=== PATIENT | female | born 1960 | race Caucasian/White ===

== ENCOUNTER 2020-09-14 13:08 | Inpatient (IN) | payer BC ==
[2020-09-14 18:01] VITALS: BMI 26.7
[2020-09-14] MEDS ORDERED: Ondansetron ODT 4 MG TAB PO PRN (18:22)
[2020-09-14] MEDS ORDERED: Ondansetron PF 4 MG/2 ML Vial IVP PRN (18:22)
[2020-09-14] MEDS ORDERED: hydrALAZINE 20 MG/ML VIAL SLOW IVP PRN (18:22)
[2020-09-14] MEDS ORDERED: Dextrose 50% Abboject 50 ML SYRINGE SLOW IVP PRN (18:22)
[2020-09-14] MEDS ORDERED: Cyclobenzaprine 10 MG TAB PO PRN (18:22)
[2020-09-14] MEDS ORDERED: Dextrose 5% in Water 1,000 ML IV PRN (18:22)
[2020-09-14] MEDS ORDERED: Insulin Regular 300 UNITS/3 ML VIAL SC PRN (19:13)
--- NOTE | 2020-09-14 19:58 | RAD ---
Exam:3 views right shoulder HISTORY: Pain. Fall. COMPARISON: None FINDINGS: Comminuted right humeral fracture. IMPRESSION: Comminuted right humeral head fracture.
--- NOTE | 2020-09-14 20:07 | HP ---
REQUESTING PHYSICIAN: Dr. Daniel Lowry from [facility]. ATTENDING SURGEON: Dr. Maher. CONSULTATIONS: Neurosurgery, Dr. Azul; Orthopedics, Dr. Wright. HISTORY OF PRESENT ILLNESS: The patient is a 60-year-old woman, who was brought to our facility as a transfer from [facility] status post a fall yesterday. The patient reports that she tripped on a rug and fell, hit her head and her right shoulder. She felt okay during the day, but her headache increased and this morning, she went to [facility] Department, where she underwent evaluation and examination and was noted to have a right proximal humerus fracture and an intraparenchymal hematoma, at which time, she was transferred to our facility for neurosurgical evaluation and orthopedic evaluation. The patient reports that she had some dizziness since the fall, but otherwise, her headache was being controlled for the most part with Tylenol. She denied nausea or vomiting. She is COVID negative. ALLERGIES: NONE. CURRENT MEDICATIONS: 1. Amlodipine 5 mg once daily. 2. Aspirin 81 mg once daily. 3. Atorvastatin 40 mg once daily. 4. Brilinta 90 mg one tablet twice a day. 5. Carvedilol 25 mg twice daily. 6. Humulin. 7. Toujeo. PRIMARY CARE PROVIDER: Fabiola Jarrell MD PAST MEDICAL HISTORY: Coronary stent, hypertension, hyperlipidemia, myocardial infarction, and diabetes. PAST SURGICAL HISTORY: Cardiac stent placement. SOCIAL HISTORY: The patient lives at home with family. She smoked greater than 10 years ago. Rare alcohol. No drug use. REVIEW OF SYSTEMS: 10-point review of systems is negative as otherwise stated. PHYSICAL EXAMINATION: VITAL SIGNS: Temperature is 98, heart rate 86, blood pressure 146/82, respirations 14, and oxygen saturation is 98% on room air. GENERAL: The patient is resting comfortably in a bed in the [facility]. She is awake, alert, conversant. Her [place] Coma Scale is 15. HEENT: Head is normocephalic and atraumatic. Eyes, right eye has periorbital ecchymosis. Her eyes are PERRLA bilaterally. Extraocular motion is intact. Nose has scant dried blood in the right naris, otherwise unremarkable. Ears are atraumatic without discharge. Oropharynx is clear. NECK: Nontender. Trachea is midline with no JVD. CHEST: Clear to auscultation with good inspiratory and expiratory effort. HEART: Regular rate and rhythm. ABDOMEN: Soft, flat, nontender with active bowel sounds. PELVIS: Stable. EXTREMITIES: Neurovascularly intact x4. Right upper extremity is immobilized in a sling. She has tenderness to palpation to her shoulder consistent with her right proximal humerus fracture. Again, her distal sensation is intact. Pulses are intact. Her motor is intact. LABORATORY FINDINGS: COVID is negative. WBCs 13.9, hemoglobin 10.1, hematocrit 30.9, platelets 282. Sodium 130, potassium 5.0, CO2 of 26, chloride 98, glucose 470, BUN 30, creatinine 1.5. LFTs are unremarkable. INR is 0.80. RADIOGRAPHIC FINDINGS: CT of the head without contrast shows a 1.8 cm intraparenchymal hematoma noted in the anterior right subcortical frontal lobe. Views of the right humerus show an essentially nondisplaced, mildly impacted fracture of the right humeral neck with extension into the greater tuberosity and humeral head. ASSESSMENT: 1. Status post fall with delayed presentation greater than 24 hours. 2. Intraparenchymal hematoma. 3. Right proximal humerus fracture. 4. Hyperglycemia secondary to diabetes. 5. Vertigo secondary to closed head injury. PLAN: Plan will be to keep the patient here in the IMCU. She will have serial neurologic exams, repeat head CT in the morning, scopolamine patch for her vertigo, sliding scale insulin, and evaluation by Orthopedics and Neurosurgery. The evaluation, examination, laboratory, and radiographic findings were discussed with Dr. Maher prior to this dictation. Job ID: [id number]
[2020-09-14] MEDS: Sodium Chloride 0.9% 1,000 ML IV SCH (20:30)
[2020-09-14] MEDS: Acetaminophen 325 MG TAB PO SCH (20:30)
[2020-09-14] MEDS: Atorvastatin Calcium 40 MG TAB PO SCH (20:31)
[2020-09-14] MEDS: Scopolamine 1.5 mg/72 hour Patch TD SCH (20:31)
[2020-09-14] MEDS: Insulin Regular 300 UNITS/3 ML VIAL SC PRN (20:32)
[2020-09-14] MEDS: Famotidine 20 MG TAB PO SCH (20:32)
[2020-09-14] MEDS: Carvedilol 25 MG TAB PO SCH (20:32)
--- NOTE | 2020-09-14 23:35 | CON ---
DATE OF CONSULTATION: 09/14/2020 HISTORY OF PRESENT ILLNESS: Ms. Street is a 60-year-old female, who fell yesterday, tripping on a throw rug, landing on her right eye and right shoulder. She states that this morning she still had a headache, so she went to [facility] Emergency Room, where she underwent evaluation and found to have a right proximal humerus fracture and intraparenchymal hemorrhage measuring 1.8 cm on the right side. She was a direct admit to the [facility]. She tells me she is taking Brilinta 90 mg twice a day and aspirin 81 mg once a day. Her last dose of Brilinta 90 mg and aspirin 81 mg was this morning. She denies any loss of consciousness, blurred vision, or seizures. REVIEW OF SYSTEMS: CONSTITUTIONAL: Denies fever or chills. ENT: Denies change in vision or hearing. CARDIAC: Denies chest pain, shortness of breath, or diaphoresis. PULMONARY: Denies shortness of breath, cough, or hemoptysis. GI: Denies abdominal pain, nausea, vomiting, diarrhea, or change in stool formation or consistency. : Denies trouble with urination, frequency of urination, or bloody urine. SKIN: Reports bruising of the right eye and of the right arm and shoulder. Denies skin rash or skin masses. MUSCULOSKELETAL: As per history of present illness. NEUROLOGICAL: As per history of present illness. PSYCHOLOGICAL: As per history of present illness. MEDICAL HISTORY: Coronary stents, hypertension, hyperlipidemia, myocardial infarction, and diabetes. PAST SURGICAL HISTORY: Cardiac stent. HOSPITALIZATIONS: As above surgeries. SOCIAL HISTORY: Former smoker. Occasionally drinks alcohol. Denies illicit drug use. The patient lives at home with family. MEDICATIONS: 1. Toujeo. 2. Humulin. 3. Carvedilol 25 mg. 4. Brilinta 90 mg twice a day. 5. Atorvastatin 40 mg. 6. Aspirin 81 mg. 7. Amlodipine 5 mg. ALLERGIES: NO KNOWN DRUG ALLERGIES. PHYSICAL EXAMINATION: VITAL SIGNS: BP 132/78, heart rate 78, respirations 16, and temperature 98.6. GENERAL: The patient is in no acute distress. She is awake, alert, and oriented x3. HEENT: Head is normocephalic and atraumatic. Right eye has periorbital ecchymosis. Pupils are equal. Extraocular movements are intact. NECK: Soft, supple. No masses are noted. Range of motion is intact and nonpainful. Cranial nerves are grossly intact. NEUROLOGICAL: Memory, attention, fund of knowledge normal. Free active range of motion in all extremities. No focal motor weakness. No reflex asymmetry. GCS 15. LABORATORY DATA: WBCs 13.9, hemoglobin 10.1, hematocrit 30.9, platelets 282. Sodium is 130. INR is 0.80. IMAGING: CT of the head shows a 1.8 cm intraparenchymal hematoma in the right subcortical frontal lobe. There is also a right humerus nondisplaced fracture of the right humeral neck with extension into the greater tuberosity and humeral head. ASSESSMENT: 1. Fall. 2. Intraparenchymal hematoma. 3. Right proximal humerus fracture. PLAN: Neuro checks every 2 hours. Head of bed, 30 degrees. Stop aspirin and Brilinta for 2 weeks. Transfuse 1 unit of platelets and re-scan head in the morning. No intracranial surgery at this time. Job ID: [id number] [facility]
[2020-09-15] MEDS: Acetaminophen 325 MG TAB PO SCH ×4 (00:35→20:53)
[2020-09-15] MEDS: traMADol HCl 50 MG TAB PO SCH ×5 (00:35→23:44)
[2020-09-15] MEDS: Sodium Chloride 0.9% 1,000 ML IV SCH (00:39)
[2020-09-15 03:51] LABS: #Basophils 0.1 thou/uL (0.0-0.2); #Eosinphils 0.1 thou/uL (0.0-0.7); #Lymphocytes 2.5 thou/uL (1.20-3.40); #Monocytes 1.2 thou/uL (0.11-0.59); #Neutrophils 7.4 thou/uL (1.40-6.50); %Basophils 0.5 % (0.0-1.0); %Lymphocytes 22.4 % (21.0-51.0); %Monocytes 10.5 % (0.0-10.0); %Neutrophils 65.6 % (42.0-75.0); Mean Corpuscular HGB CONC 34.3 g/dL (32.0-36.0); Mean Corpuscular Hemoglobin 31.9 pg (27.0-31.0); Mean Corpuscular Volume 93.2 fL (78.0-98.0); Mean Platelet Volume 7.6 fL (7.4-10.4); Platelet Count 315 thou/uL (130-400); RBC Distribution Width 13.7 % (11.5-14.5); White Blood Cell (WBC) Count 11.2 thou/uL (4.8-10.8)
[2020-09-15 04:13] LABS: Anion Gap 13 mmol/L (10-20); BUN (Urea Nitrogen) 26 mg/dL (9.8-20.1); Calc. Creatinine Clearance 53 mL/min (70-130); Calcium 8.3 mg/dL (7.8-10.44); Carbon Dioxide 24 mmol/L (23-31); Chloride 104 mmol/L (98-107); Glucose 154 mg/dL (80-115); Potassium 3.7 mmol/L (3.5-5.1); Sodium 137 mmol/L (136-145)
--- NOTE | 2020-09-15 07:19 | PRG ---
DATE OF SERVICE: 09/15/2020 I personally interviewed and examined the patient, agree with documentation of Vu Mendoza PA-C, dated 09/14/2020. Briefly, Ruba Street is a 60-year-old woman who [place] she got up to move across the living room. They have a throw rug on the floor there and before she could reach the window, where she was going to make adjustments to the blinds, her foot got caught up and she fell forward. She had a head injury, for which she sought medical attention with us and CT examination of brain showed a small parenchymal contusion, subcortical in the right frontal lobe. She is admitted for observation. She also had a humerus fracture. Overnight, she has been resting comfortably. The arm is sore. Among the electronically recorded vital signs, I see a maximum temperature 99.1 degrees Fahrenheit, recorded blood pressures are in the 120s. Ms. Street is awake. She is alert. Her eyes are open. She is cognitively intact. She denies any anxiety about safety at home. Cranial nerves are functioning well. There is no drift. There is no neglect. I do not find any lateralizing motor or sensory deficits. CT examination of brain this morning shows stability of the small parenchymal bleed. This is tiny and does not require surgical intervention. She only is on Brilinta and aspirin. We are going to have to hold the Brilinta for 2 weeks and the aspirin preferably for 1 week unless there is a strong indication to start it sooner. We will schedule a followup CT examination of brain in a few weeks and I will call her with those results from clinic. She can be discharged home once she proves to physical therapy and nursing that she is safe for all of her activities of daily living. Job ID: [id number] [facility]
--- NOTE | 2020-09-15 08:14 | CT ---
PRELIMINARY REPORT/[facility]/EMERGENCY AFTER HOURS PROCEDURE: Receipt of this report by the clinical staff was confirmed with Elizabeth Trujillo RN by Giovana Horton Sep 15, 2020 05:30:00 [employer]IVER. Addendum electronically signed by Giovana Horton on September 15, 2020 5:31:05 AM PARTY BUS DRIVER EXAM: CT Head Without Intravenous Contrast. CLINICAL HISTORY: FOLLOW UP [facility]// INITIAL SCAN PREFORMED OFFSITE FROM ANOTHER FACILITY TECHNIQUE: Axial computed tomography images of the head/brain without intravenous contrast. COMPARISON: None provided. FINDINGS: BRAIN: There is a small hemorrhagic contusion in the right frontal lobe measuring about 15 mm associated wit h right periorbital trauma. There is generalized atrophy and abundant white matter changes noted, mu ch more than typically seen for a patient this age. Periorbital soft tissue swelling on the right wi thout evidence of fracture. Chronic opacification of the sphenoid sinuses bilaterally. Mastoids are clear. IMPRESSION: Small hemorrhagic contusion in the right frontal lobe. Large periorbital soft tissue hematoma on the right. ELECTRONICALLY SIGNED BY: Vu Esquivel MD Sep 15, 2020 5:24:01 AM PARTY BUS DRIVER This report is intended for review by the ordering physician only, in accordance of law. If you recei ve this report in error, please call [facility] at [phone]. FINAL REPORT EMERGENT AFTER HOURS CT OF THE BRAIN WITHOUT CONTRAST: FINDINGS/IMPRESSION: I agree with the findings and impression given in the preliminary report per [facility] physici an. There is a right frontal lobe contusion. There may be a tiny amount of subdural blood along the anterior aspect of the falx near this other parenchymal contusion. POS: MALCOM
[2020-09-15] MEDS: Amlodipine 5 MG TAB PO SCH (09:43)
[2020-09-15] MEDS: Famotidine 20 MG TAB PO SCH ×2 (09:43→20:53)
[2020-09-15] MEDS: Carvedilol 25 MG TAB PO SCH ×2 (09:44→20:53)
--- NOTE | 2020-09-15 09:44 | CON ---
DATE OF CONSULTATION: CONSULTING PHYSICIAN: Ruy Maher DO CHIEF COMPLAINT: Right shoulder pain. HISTORY OF PRESENT ILLNESS: Ms. Street is a 60-year-old female, who fell yesterday. She tripped on a rug. She landed on her right shoulder and also hit her head. She had headaches and shoulder pain and went to the [facility] Emergency Department. She was transferred over for further care. She has been admitted to the intermediate care unit for observation. She is resting comfortably. She feels eager to get up and get out of the hospital she reports. Her shoulder is in a sling. I was consulted for a proximal humerus fracture. ALLERGIES: NONE. MEDICATIONS: see chart PAST MEDICAL HISTORY: Coronary artery disease, hypertension, hyperlipidemia, history of myocardial infarction, and diabetes. PAST SURGICAL HISTORY: Cardiac stent placement. REVIEW OF SYSTEMS: Positive for mild right shoulder pain. Otherwise, negative 10-point review of systems. SOCIAL HISTORY: The patient lives locally. She denies alcohol or drug use. FAMILY MEDICAL HISTORY: Noncontributory. IMAGING: Right shoulder x-rays demonstrate a proximal humeral fracture with very minimal displacement. This is a three-part fracture. There may be abnormality of the anterior glenoid. This is difficult to visualize. PHYSICAL EXAMINATION: VITAL SIGNS: Blood pressure 140/53, heart rate is 82, respiratory rate of 17, oxygen saturation 94%. GENERAL: She is sitting upright, in no apparent distress. HEENT: The patient has ecchymosis about her eyes, otherwise intact. RESPIRATORY: Breathing comfortably. ABDOMEN: Soft, nontender, nondistended. CARDIOVASCULAR: Pulses palpable and regular peripherally. MUSCULOSKELETAL: The patient's right arm is neurovascularly intact in the fingers and hand. She is able to move her fingers, wrist, and elbow well. She does have ecchymosis of the upper arm and down to the elbow. There is swelling about her shoulder. She has pain with shoulder motion. IMPRESSION: Right proximal humerus fracture in a patient who fell yesterday. PLAN: Regarding the shoulder, the patient can be treated nonoperatively. We will continue her sling for comfort. She can mobilize out of bed. She can work on gentle motion of the elbow, wrist, and hand. I would like to see her in the clinic in two weeks to check x-ray to confirm that she is maintaining appropriate alignment. Job ID: [id number] [facility]
[2020-09-15] MEDS: Insulin Regular 300 UNITS/3 ML VIAL SC PRN (11:51)
--- NOTE | 2020-09-15 20:42 | PRG ---
DATE OF SERVICE: 09/15/2020 SUBJECTIVE: The patient was seen this morning during rounds. She was sitting up in bed with no signs of acute distress. She reported her pain is well controlled. GCS is 15. Hemodynamically stable. Tolerated her clear liquid diet. OBJECTIVE: VITAL SIGNS: Temperature 98.7, pulse 75, respirations 15, oxygen saturation 96% on room air, and blood pressure 118/48. GENERAL: Well-appearing elderly female, sitting up in bed with no signs of acute distress. PULMONARY: Equal chest rise and fall. Clear breath sounds bilaterally. No signs of acute respiratory distress. CARDIAC: Regular rate and rhythm. GI: Abdomen is soft, nontender, nondistended. EXTREMITIES: 2+ pulses in all extremities. Gross motor and sensation intact. Right upper extremity is with sling. NEUROLOGIC: GCS is 15. No focal neurological deficits. HEENT: Pupils equal, round, reactive to light bilaterally. Face, the patient has bilateral periorbital bruising. LABORATORY FINDINGS: There are no new laboratory findings to discuss. DIAGNOSTIC FINDINGS: CT scan of the brain completed this morning demonstrates small hemorrhagic contusions in the right frontal lobe, large periorbital soft tissue hematoma on the right. ASSESSMENT: 1. Status post mechanical fall from standing, on aspirin and Brilinta. 2. Intraparenchymal and subdural hemorrhages in the right frontal area. 3. Right eye contusion. 4. Right proximal humerus fracture. 5. History of coronary stents, hypertension, myocardial infarction, and hyperlipidemia. PLAN: Advance to diabetic diet. Discontinue IV fluids. Restart home medications as clinically indicated. Start physical, occupational, and speech language pathology therapies. I did speak with the nurse practitioner of the patient's independent insurance adjuster, Dr. Ulisses Acuna. I updated them on the patient's TBI and the recommendations from Neurosurgery is to discontinue aspirin for one week and Brilinta for two weeks, they are in agreement and will re-evaluate the patient. After evaluation by PT, OT, and Speech, we will consider placement versus discharge home. The patient is updated on the plan and is in agreement. This patient was seen and evaluated by Dr. Maher and myself this morning during rounds. Job ID: [id number]
[2020-09-15] MEDS: Atorvastatin Calcium 40 MG TAB PO SCH (20:53)
[2020-09-16] MEDS: Insulin Regular 300 UNITS/3 ML VIAL SC PRN ×3 (00:39→17:31)
[2020-09-16] MEDS: Acetaminophen 325 MG TAB PO SCH ×4 (03:21→21:06)
[2020-09-16 05:52] LABS: #Basophils 0.1 thou/uL (0.0-0.2); #Eosinphils 0.2 thou/uL (0.0-0.7); #Lymphocytes 2.8 thou/uL (1.20-3.40); #Monocytes 1.4 thou/uL (0.11-0.59); #Neutrophils 9.5 thou/uL (1.40-6.50); %Basophils 0.5 % (0.0-1.0); %Eosinophils 1.3 % (0.0-10.0); %Lymphocytes 19.9 % (21.0-51.0); %Neutrophils 68.2 % (42.0-75.0); Hemoglobin 8.9 g/dL (12.0-16.0); Mean Corpuscular HGB CONC 33.9 g/dL (32.0-36.0); Mean Corpuscular Hemoglobin 31.7 pg (27.0-31.0); Mean Corpuscular Volume 93.6 fL (78.0-98.0); Mean Platelet Volume 7.6 fL (7.4-10.4); Platelet Count 310 thou/uL (130-400); RBC Distribution Width 13.6 % (11.5-14.5); Red Blood Cell (RBC) Count 2.81 mill/uL (4.20-5.40); White Blood Cell (WBC) Count 13.9 thou/uL (4.8-10.8)
[2020-09-16] MEDS: traMADol HCl 50 MG TAB PO SCH ×3 (06:28→17:30)
[2020-09-16 06:40] LABS: Anion Gap 15 mmol/L (10-20); BUN (Urea Nitrogen) 22 mg/dL (9.8-20.1); Calc. Creatinine Clearance 58 mL/min (70-130); Calcium 8.4 mg/dL (7.8-10.44); Carbon Dioxide 22 mmol/L (23-31); Chloride 103 mmol/L (98-107); Glucose 210 mg/dL (80-115); Magnesium 2.1 mg/dL (1.6-2.6); Phosphorus 3.3 mg/dL (2.3-4.7); Potassium 3.8 mmol/L (3.5-5.1); Sodium 136 mmol/L (136-145)
--- NOTE | 2020-09-16 07:58 | PRG ---
DATE OF SERVICE: 09/16/2020 I saw Ms. Street in her hospital room this morning. She is moved out of the intermediate care unit to general floor care. She feels well and asks to go home. Once again, she feels safe at home, she does not feel there is any threatening or adversely affecting her health that would be present in her home. Among the electronically recorded vital signs, the maximum temperature I see is 98.2 degrees Fahrenheit. Blood pressures have been 140s to 150s. Ms. Street is wide awake. She is answering questions. She is moving all extremities well. We will make followup arrangements for Ms. Street in our Neurosurgery Clinic for a CT scan in about 3 weeks to ensure resolution of the intraparenchymal contusion suffered during her fall. The Social Work and Physical Therapy feel she is safe at home. She can be discharged. We will make our Neurosurgery followup arrangements. Job ID: [id number]
[2020-09-16] MEDS: Famotidine 20 MG TAB PO SCH ×2 (08:21→21:03)
[2020-09-16] MEDS: Carvedilol 25 MG TAB PO SCH ×2 (08:21→21:03)
[2020-09-16] MEDS: Amlodipine 5 MG TAB PO SCH (08:21)
[2020-09-16] MEDS: Senokot S 8.6-50 MG TAB PO SCH ×2 (08:23→21:03)
[2020-09-16] MEDS: Polyethylene Glycol 3350 17 GM Packet PO SCH (08:23)
--- NOTE | 2020-09-16 16:00 | PRG ---
DATE OF SERVICE: 09/16/2020 SUBJECTIVE: The patient is resting comfortably in bed this morning. Says she is doing well. States that at nighttime, she gets kind of confused, wakes up in the morning, and feels back to normal. She states her pain is well controlled. She is able to get up and move around without difficulty, tolerating diet. OBJECTIVE: VITAL SIGNS: Temperature 98.1, heart rate 86, respiratory rate 16, O2 saturation 98% on room air, blood pressure 138/60. GENERAL: Well-appearing elderly female, sitting up in bed with no signs of acute distress. GCS of 15. PULMONARY: No signs of acute respiratory distress. CARDIAC: Regular rate and rhythm. GI: Abdomen is soft, nontender, nondistended. EXTREMITIES: Gross motor and sensation are intact. Right upper extremity is out of the sling today on rounds. However, she is encouraged to wear it. NEUROLOGIC: No focal neurologic deficits. HEENT: Extraocular movements intact. The patient has bilateral periorbital bruising. LABORATORY FINDINGS: White blood cell count 13.9. All of her electrolytes are within normal limits. There are no new radiographic images to review. ASSESSMENT: 1. Status post mechanical fall from standing, on aspirin and Brilinta. 2. Intraparenchymal and subdural hemorrhages in the right frontal area. 3. Right eye contusion. 4. Right proximal humerus fracture. 5. History of coronary stents, hypertension, myocardial infarction, hyperlipidemia. PLAN: Hold aspirin for 1 week and Brilinta for 2 weeks. Continue working with PT, OT, and Speech. Neurosurgery recommendations include a CT scan in about 3 weeks to ensure resolution of the intraparenchymal contusion suffered during her fall. Ortho recommends a 2-week followup in the clinic. We are working with Case Management to arrange inpatient short-term rehab for discharge and patient is agreeable. Patient seen this morning on rounds with Dr. Maher. He agrees with plan and above documentation. Job ID: [id number] [facility]
[2020-09-16] MEDS ORDERED: Ascorbic Acid 500 mg Chewable Tablet PO SCH (19:45)
[2020-09-16] MEDS: Atorvastatin Calcium 40 MG TAB PO SCH (21:03)
[2020-09-17] MEDS: Acetaminophen 325 MG TAB PO SCH ×4 (02:04→20:53)
[2020-09-17] MEDS: traMADol HCl 50 MG TAB PO SCH ×4 (06:38→17:47)
[2020-09-17] MEDS: Insulin Regular 300 UNITS/3 ML VIAL SC PRN ×3 (06:42→17:47)
[2020-09-17] MEDS: Amlodipine 5 MG TAB PO SCH (09:06)
[2020-09-17] MEDS: Carvedilol 25 MG TAB PO SCH ×2 (09:06→20:53)
[2020-09-17] MEDS: Ascorbic Acid 500 mg Chewable Tablet PO SCH (09:07)
[2020-09-17] MEDS: Polyethylene Glycol 3350 17 GM Packet PO SCH (09:07)
[2020-09-17] MEDS: Famotidine 20 MG TAB PO SCH ×2 (09:07→20:54)
[2020-09-17] MEDS: Senokot S 8.6-50 MG TAB PO SCH ×2 (09:07→20:54)
[2020-09-17] MEDS: Scopolamine 1.5 mg/72 hour Patch TD SCH (20:54)
[2020-09-17] MEDS: Atorvastatin Calcium 40 MG TAB PO SCH (20:54)
--- NOTE | 2020-09-17 22:23 | PRG ---
DATE OF SERVICE: 09/17/2020 SUBJECTIVE: The patient is here after a fall which resulted in a right proximal humerus fracture and an intraparenchymal hematoma. Patient is resting comfortably in bed this morning. She says she is doing well. She states her pain is well controlled. She is able to get up and move around without difficulty and is tolerating her diet. Overnight, the nurse told me she seemed delirious and also was feeling like she was developing a cold. This morning, she says she feels better but she does say that she feels a little bit congested. Patient says she wants to go home. OBJECTIVE: VITAL SIGNS: Temperature 98.1, pulse 98, respiratory rate 18, 97% on room air, blood pressure 137/65. GENERAL: Well-appearing, elderly female, sitting up in bed with no signs of acute distress. GCS of 15. PULMONARY: No signs of acute respiratory distress. CARDIAC: Regular rate and rhythm. GASTROINTESTINAL: Abdomen is soft, nontender, nondistended. EXTREMITIES: Gross motor and sensation are intact. Right upper extremity is not in sling on rounds today. NEUROLOGIC: No focal neurologic deficits. HEENT: Extraocular movements intact. The patient has bilateral periorbital bruising. LABORATORY FINDINGS: The patient has no new laboratory data to review today. RADIOGRAPHIC IMAGING: Patient has no new radiographic images to review today. ASSESSMENT: 1. Status post mechanical fall from standing, on aspirin and Brilinta at home. 2. Intraparenchymal and subdural hemorrhage in the right frontal area, stable. 3. Right eye contusion. 4. Right proximal humerus fracture. 5. History of coronary artery stent, hypertension, myocardial infarction, hyperlipidemia. PLAN: Continue working with PT/OT and Speech. Continue to follow up with Neurosurgery recommendations. In the meantime, they recommend holding aspirin for 1 week and Brilinta for 2 weeks. They want a CT scan in about 3 weeks to ensure resolution of the intraparenchymal contusion suffered during her fall. Also recommend a 2-week followup in the clinic. We are still working with Case Management to arrange inpatient short-term rehab for discharge for [facility]. Overall from our point of view, patient is stable for discharge. Patient was seen this morning on rounds with Dr. Maher. He agrees with the plan and documentation as stated above. Job ID: [id number] [facility]
[2020-09-18] MEDS: Acetaminophen 325 MG TAB PO SCH ×2 (02:00→09:35)
[2020-09-18] MEDS: traMADol HCl 50 MG TAB PO SCH ×3 (04:50→12:28)
[2020-09-18] MEDS: Insulin Regular 300 UNITS/3 ML VIAL SC PRN (05:40)
[2020-09-18] MEDS: Polyethylene Glycol 3350 17 GM Packet PO SCH (09:31)
[2020-09-18] MEDS: Carvedilol 25 MG TAB PO SCH (09:32)
[2020-09-18] MEDS: Ascorbic Acid 500 mg Chewable Tablet PO SCH (09:32)
[2020-09-18] MEDS: Senokot S 8.6-50 MG TAB PO SCH (09:32)
[2020-09-18] MEDS: Amlodipine 5 MG TAB PO SCH (09:32)
[2020-09-18] MEDS: Famotidine 20 MG TAB PO SCH (09:32)
[2020-09-18 11:41] VITALS: BP 134/64; TEMP 98.4
--- NOTE | 2020-09-21 13:12 | DIS ---
DATE OF ADMISSION: 09/14/2020 DATE OF DISCHARGE: 09/18/2020 ADMISSION DIAGNOSES: 1. Mechanical fall from standing, on aspirin and Brilinta. 2. Intraparenchymal and subdural hemorrhages in the right frontal area. 3. Right eye contusion. 4. Right proximal humerus fracture. DISCHARGE DIAGNOSES: 1. Mechanical fall from standing, on aspirin and Brilinta. 2. Intraparenchymal and subdural hemorrhages in the right frontal area. 3. Right eye contusion. 4. Right proximal humerus fracture. CONSULTING PHYSICIAN: Tessa Azul MD of Neurosurgery and Deep Wright MD of Orthopedic Surgery. PROCEDURES: None. HOSPITAL COURSE: The patient is a 60-year-old female, who presented to the emergency department as a transfer from [facility] after she had a mechanical fall from standing where she was found to have intraparenchymal hemorrhages as well as a right eye contusion and a right proximal humerus fracture. The patient's GCS was 14 to 15 upon arrival and remained so throughout her hospitalization. The patient was evaluated by Neurosurgery. They are recommending holding Brilinta for 2 weeks and aspirin for 1 week. Orthopedic Surgery recommended nonoperative management with right upper extremity in a sling. She was admitted to our service and ultimately was discharged to acute rehab facility for physical therapy, occupational therapy, and speech language pathology. At the time of discharge, the patient's pain was well controlled. She was tolerating a diabetic diet. She was working with Physical and Occupational Therapy and she was voiding without difficulties. DISCHARGE DISPOSITION: Acute rehab facility, [facility]. DISCHARGE CONDITION: Satisfactory. PHYSICAL EXAMINATION: VITAL SIGNS: Temperature 98.8, pulse 98, respirations 18, oxygen saturation 96% on room air, blood pressure 134/64. GENERAL: Well-appearing elderly female, sitting up in bed, having breakfast with no signs of acute distress. PULMONARY: Equal chest rise and fall. No signs of acute respiratory distress. CARDIAC: Regular rate and rhythm. NEUROLOGIC: GCS is 14, -1 for confusion. DISCHARGE INSTRUCTIONS: The patient was discharged to acute rehab facility. Activity as tolerated. Nonweightbearing to the right upper extremity, diabetic diet, incentive spirometry, and a walker. She will have physical and occupational therapy as well as speech. DISCHARGE MEDICATIONS: Include: 1. Tylenol. 2. Amlodipin. 3. Vitamin C. 4. Atorvastatin. 5. Carvedilol. 6. NovoLog. 7. Insulin glargine. 8. MiraLAX. 9. Senokot S. 10. Tramadol. FOLLOWUP APPOINTMENTS: The patient is to follow up with Dr. Azul and Dr. Wright. No followup needed with Dr. Maher [facility]. This is a summary of the patient's hospitalization. For full details, please see her medical record in its entirety. This patient was seen and evaluated by myself on the day of discharge. Job ID: [id number]
== END 2020-09-18 13:10 | DRG 86 ==
LOC: IMCU/EMU 13:08 → T4-B 09-15 13:17
PROVIDERS: ADMIT Surgery; ATTEND Surgery
PROC: 30233R1 Transfusion of Nonautologous Platelets into Peripheral Vein, Percutaneous Approach (ICD-10-PCS; principal; 2020-09-14)
DX: S06.340A Traumatic hemorrhage of right cerebrum without loss of consciousness, initial encounter (principal); S42.254A Nondisplaced fracture of greater tuberosity of right humerus, initial encounter for closed fracture; Z20.828 Contact with and (suspected) exposure to other viral communicable diseases; I10 Essential (primary) hypertension; E11.65 Type 2 diabetes mellitus with hyperglycemia; W18.30XA Fall on same level, unspecified, initial encounter; S05.11XA Contusion of eyeball and orbital tissues, right eye, initial encounter; E78.5 Hyperlipidemia, unspecified; I25.2 Old myocardial infarction; Z95.5 Presence of coronary angioplasty implant and graft; Z87.891 Personal history of nicotine dependence; Z79.899 Other long term (current) drug therapy; Z79.4 Long term (current) use of insulin; Z79.82 Long term (current) use of aspirin
CPT/HCPCS: 36415; 36416; 36430; 70450; 80048; 83735; 84100; 85025; 86850; 86900; 86901; J1815; P9035

== ENCOUNTER 2020-11-26 15:34 | Outpatient (CLI) | payer BC ==
--- NOTE | 2020-11-26 16:13 | CT ---
CT HEAD WITHOUT IV CONTRAST COMPARISON: 09/15/2020 HISTORY: Follow-up intracranial hemorrhage. Subdural hemorrhage. TECHNIQUE: Axial CT imaging at 5 mm intervals from vertex through skull base without contrast FINDINGS: There is decreased attenuation in the periventricular white matter which is nonspecific but likely re flective of chronic small vessel ischemic changes. Low-attenuation areas are again seen within each basal ganglia as well as each thalamus with probable remote lacunar infarctions. Low-attenuation focu s is again present in the alma likely due to remote lacunar infarction/chronic ischemic changes. Previously noted intraparenchymal hemorrhage/contusion in the right anterior frontal lobe has resolve d compatible with expected evolutionary changes in hemorrhage. No new intraparenchymal or extra-axial hemorrhage is identified. There is mild cerebral volume loss. The ventricular system is normal in size, shape, and position for the degree of sulcal atrophy. There is no evidence of an acute infarction, mass effect, or midline shift. Dense vascular calcifications are seen in the carotid siphons and in the distal vertebral arteries. Again noted is opacification of the frontal sinuses mucosal thickening posterior right ethmoidal air cell. Osseous structures appear intact. No other interval change. IMPRESSION: 1. No acute intracranial abnormality demonstrated. 2. Chronic small vessel ischemic changes and cerebral volume loss. 3. Resolution of right anterior frontal lobe contusion. No intraparenchymal or extra-axial hemorrhage is seen on current study. 4. Stable opacification sphenoid sinuses.
== END 2020-11-26 15:35 | disposition home or self-care (01) ==
LOC: BICCT 15:34
PROVIDERS: ATTEND Internal Medicine
DX: I61.9 Nontraumatic intracerebral hemorrhage, unspecified (principal); I67.82 Cerebral ischemia; G93.89 Other specified disorders of brain; J34.89 Other specified disorders of nose and nasal sinuses
CPT/HCPCS: 70450

== ENCOUNTER 2021-08-17 11:15 | Emergency (ER) | payer OTHER, BC ==
[2021-08-17] MEDS ORDERED: Lidocaine 1% w/Epinephrine 1:100K 20 ML VIAL ONE (14:13)
== END 2021-08-17 14:44 | disposition home or self-care (01) ==
LOC: ERS 11:15
DX: S01.01XA Laceration without foreign body of scalp, initial encounter (principal); I25.10 Atherosclerotic heart disease of native coronary artery without angina pectoris; I25.2 Old myocardial infarction; E11.9 Type 2 diabetes mellitus without complications; E78.5 Hyperlipidemia, unspecified; I10 Essential (primary) hypertension; W01.198A Fall on same level from slipping, tripping and stumbling with subsequent striking against other object, initial encounter
CPT/HCPCS: 12002; 70450; 72125

== ENCOUNTER 2023-09-24 13:05 | Inpatient (IN) | payer BC ==
[2023-09-24] MEDS ORDERED: Electrolyte Replacement Protocol 1 EACH IVPB SCH (14:24)
[2023-09-24] MEDS ORDERED: niCARdipine 25 MG in Sodium Chloride 0.9% 250 ML 250 ML IVPB PRN (14:24)
[2023-09-24] MEDS ORDERED: Sodium Chloride 0.9% 100 ML ONE (14:34)
[2023-09-24] MEDS ORDERED: cefTRIAXone (ROCEPHIN) 2 GM VIAL ONE (14:34)
[2023-09-24 14:53] LABS: Bacteria/HPF 4+ HPF (None Seen); Bilirubin Negative (Negative); Blood, Urine Negative (Negative); CAUTI Indications for Culture Pelvic or flank pain; Clarity Clear (Clear); Glucose, Urine (Dipstick) Greater than 1000 mg/dL (Negative); Ketone, Urine 20 mg/dL (Negative); Leukocyte 250 Leu/uL (Negative); Nitrite 2+ (Negative); Protein, Urine (Dipstick) 10 mg/dL (Neg-Trace); RBC/HPF 0-3 HPF (0-3); Specific Gravity, Urine 1.018 (1.002-1.036); Squamous Epithelial 0-3 HPF (0-3); Urobilinogen Normal mg/dL (Less than 2)
[2023-09-24 14:58] LABS: Urine Culture Reflex No No
[2023-09-24] MEDS ORDERED: niCARdipine 25 MG/10 ML SDV ONE (15:23)
[2023-09-24 15:26] LABS: SARS-CoV-2 NAA Rapid Test Not Detected (NotDetected)
[2023-09-24] MEDS: Sodium Chloride 0.9% 1,000 ML IV SCH (16:50)
[2023-09-24 17:02] VITALS: BMI 26.3
[2023-09-24] MEDS: Insulin Regular 300 UNITS/3 ML VIAL SC PRN ×2 (18:20→21:29)
[2023-09-25 05:45] LABS: #Basophils 0.1 thou/uL (0.0-0.2); #Eosinphils 0.1 thou/uL (0.0-0.7); #Monocytes 1.5 thou/uL (0.11-0.59); #Neutrophils 12.2 thou/uL (1.40-6.50); %Basophils 0.3 % (0.0-1.0); %Eosinophils 0.8 % (0.0-10.0); %Lymphocytes 13.1 % (21.0-51.0); %Monocytes 9.5 % (0.0-10.0); %Neutrophils 75.8 % (42.0-75.0); Hematocrit 30.4 % (36.0-47.0); Hemoglobin 10.1 g/dL (12.0-16.0); Mean Corpuscular HGB CONC 33.2 g/dL (32.0-36.0); Mean Corpuscular Hemoglobin 31.7 pg (27.0-31.0); Mean Corpuscular Volume 95.3 fl (78.0-98.0); Platelet Count 293 10x3/uL (130-400); RBC Distribution Width 14.5 % (11.5-14.5); Red Blood Cell (RBC) Count 3.19 mill/uL (4.20-5.40); White Blood Cell (WBC) Count 16.1 10x3/uL (4.8-10.8)
[2023-09-25] MEDS: Morphine 2 MG/ML VIAL SLOW IVP PRN (05:48)
[2023-09-25] MEDS: Sodium Chloride 0.9% 1,000 ML IV SCH (05:48)
[2023-09-25 06:18] LABS: Anion Gap 11 mmol/L (10-20); BUN (Urea Nitrogen) 19 mg/dL (9.8-20.1); Calc. Creatinine Clearance 78 mL/min (70-130); Calcium 8.4 mg/dL (7.8-10.44); Carbon Dioxide 21 mmol/L (23-31); Chloride 113 mmol/L (98-107); Estimated GFR 79; Glucose 79 mg/dL (80-115); Potassium 3.6 mmol/L (3.5-5.1); Sodium 141 mmol/L (136-145)
[2023-09-25] MEDS ORDERED: hydrALAZINE 20 MG/ML VIAL SLOW IVP PRN (07:31)
[2023-09-25] MEDS: levETIRAcetam 500 MG TAB PO SCH ×2 (08:09→21:05)
[2023-09-25] MEDS: Amlodipine 5 MG TAB PO SCH (08:09)
[2023-09-25] MEDS: Carvedilol 25 MG TAB PO SCH ×2 (08:09→21:05)
[2023-09-25] MEDS: Lactulose 20 GM (30 mL) UDCUP PO SCH ×2 (14:38→21:04)
[2023-09-25] MEDS: Insulin Regular 300 UNITS/3 ML VIAL SC PRN (16:39)
[2023-09-25] MEDS: Senokot S 8.6-50 MG TAB PO SCH (21:08)
[2023-09-26] MEDS: Labetalol HCl 100 MG/20 ML VIAL SLOW IVP PRN (05:02)
[2023-09-26 05:40] LABS: #Basophils 0.1 thou/uL (0.0-0.2); #Eosinphils 0.3 thou/uL (0.0-0.7); #Neutrophils 8.6 thou/uL (1.40-6.50); %Basophils 0.5 % (0.0-1.0); %Eosinophils 2.6 % (0.0-10.0); %Lymphocytes 15.5 % (21.0-51.0); %Monocytes 8.3 % (0.0-10.0); %Neutrophils 72.7 % (42.0-75.0); Hematocrit 29.4 % (36.0-47.0); Hemoglobin 9.5 g/dL (12.0-16.0); Mean Corpuscular HGB CONC 32.3 g/dL (32.0-36.0); Mean Corpuscular Hemoglobin 30.6 pg (27.0-31.0); Mean Corpuscular Volume 94.8 fl (78.0-98.0); Mean Platelet Volume 10.2 fL (7.4-10.4); Platelet Count 254 10x3/uL (130-400); RBC Distribution Width 14.3 % (11.5-14.5); White Blood Cell (WBC) Count 11.9 10x3/uL (4.8-10.8)
[2023-09-26 06:11] LABS: Anion Gap 10 mmol/L (10-20); BUN (Urea Nitrogen) 18 mg/dL (9.8-20.1); Calc. Creatinine Clearance 69 mL/min (70-130); Carbon Dioxide 23 mmol/L (23-31); Chloride 107 mmol/L (98-107); Estimated GFR 69; Glucose 373 mg/dL (80-115); Magnesium 2.1 mg/dL (1.6-2.6); Potassium 4.3 mmol/L (3.5-5.1); Sodium 136 mmol/L (136-145)
[2023-09-26] MEDS: Insulin Regular 300 UNITS/3 ML VIAL SC PRN ×2 (06:47→12:57)
[2023-09-26] MEDS: Polyethylene Glycol 3350 17 GM Packet PO SCH (09:05)
[2023-09-26] MEDS: levETIRAcetam 500 MG TAB PO SCH ×2 (09:05→22:21)
[2023-09-26] MEDS: Lactulose 20 GM (30 mL) UDCUP PO SCH ×4 (09:05→22:28)
[2023-09-26] MEDS: Carvedilol 25 MG TAB PO SCH ×2 (09:05→22:21)
[2023-09-26] MEDS: Amlodipine 5 MG TAB PO SCH (09:05)
[2023-09-26] MEDS: Senokot S 8.6-50 MG TAB PO SCH ×3 (09:05→22:28)
[2023-09-26] MEDS: Insulin Glargine 30 UNITS/0.3 ML VIAL SC SCH (09:05)
[2023-09-26] MEDS ORDERED: Magnevist 469MG/ML 20 ML VIAL ONE ×2 (12:32)
[2023-09-26] MEDS: cefTRIAXone\\ROCEPHIN 1 GM in Sodium Chloride 0.9% 100 ML IVPB SCH (14:01)
[2023-09-27 05:41] LABS: #Basophils 0.1 thou/uL (0.0-0.2); #Eosinphils 0.3 thou/uL (0.0-0.7); #Monocytes 0.9 thou/uL (0.11-0.59); #Neutrophils 8.9 thou/uL (1.40-6.50); %Basophils 0.5 % (0.0-1.0); %Eosinophils 2.7 % (0.0-10.0); %Monocytes 7.5 % (0.0-10.0); %Neutrophils 75.9 % (42.0-75.0); Hematocrit 30.5 % (36.0-47.0); Mean Corpuscular HGB CONC 32.8 g/dL (32.0-36.0); Mean Corpuscular Hemoglobin 31.2 pg (27.0-31.0); Mean Platelet Volume 10.3 fL (7.4-10.4); Platelet Count 269 10x3/uL (130-400); RBC Distribution Width 13.9 % (11.5-14.5); Red Blood Cell (RBC) Count 3.21 mill/uL (4.20-5.40); White Blood Cell (WBC) Count 11.8 10x3/uL (4.8-10.8)
[2023-09-27 06:15] LABS: Anion Gap 12 mmol/L (10-20); BUN (Urea Nitrogen) 12 mg/dL (9.8-20.1); Calc. Creatinine Clearance 81 mL/min (70-130); Calcium 8.1 mg/dL (7.8-10.44); Carbon Dioxide 25 mmol/L (23-31); Chloride 107 mmol/L (98-107); Estimated GFR 82; Glucose 138 mg/dL (80-115); Magnesium 1.9 mg/dL (1.6-2.6); Potassium 3.7 mmol/L (3.5-5.1); Sodium 140 mmol/L (136-145)
[2023-09-27] MEDS ORDERED: Magnesium 2 GM/50 ML(in water) 2 GM in Premix 1 BAG IVPB SCH (08:00)
[2023-09-27] MEDS: Amlodipine 5 MG TAB PO SCH (09:00)
[2023-09-27] MEDS: Insulin Glargine 30 UNITS/0.3 ML VIAL SC SCH (09:00)
[2023-09-27] MEDS: Carvedilol 25 MG TAB PO SCH ×2 (09:00→20:34)
[2023-09-27] MEDS: levETIRAcetam 500 MG TAB PO SCH ×2 (09:00→20:34)
[2023-09-27] MEDS: Lactulose 20 GM (30 mL) UDCUP PO SCH ×3 (09:01→20:35)
[2023-09-27] MEDS: Polyethylene Glycol 3350 17 GM Packet PO SCH (09:01)
[2023-09-27] MEDS: Senokot S 8.6-50 MG TAB PO SCH ×2 (09:01→20:35)
[2023-09-27] MEDS: cefTRIAXone\\ROCEPHIN 1 GM in Sodium Chloride 0.9% 100 ML IVPB SCH (13:08)
[2023-09-27] MEDS ORDERED: FLU VACC QS2023-24(6MOS UP)/PF 60 MCG/0.5 ML SYRINGE IM ONE (17:15)
[2023-09-27] MEDS: Morphine 2 MG/ML VIAL SLOW IVP PRN (20:33)
[2023-09-28] MEDS ORDERED: Dextrose 50% Abboject 50 ML SYRINGE SLOW IVP PRN (00:52)
[2023-09-28] MEDS ORDERED: Dextrose 5% in Water 1,000 ML IV PRN (00:52)
[2023-09-28] MEDS ORDERED: Glucagon 1 MG/ML KIT IM PRN (00:52)
[2023-09-28] MEDS: Labetalol HCl 100 MG/20 ML VIAL SLOW IVP PRN (00:57)
[2023-09-28] MEDS: Insulin Regular 300 UNITS/3 ML VIAL SC PRN (01:00)
[2023-09-28 05:42] LABS: #Basophils 0.1 thou/uL (0.0-0.2); #Eosinphils 0.3 thou/uL (0.0-0.7); #Monocytes 1.1 thou/uL (0.11-0.59); #Neutrophils 8.1 thou/uL (1.40-6.50); %Basophils 0.5 % (0.0-1.0); %Eosinophils 2.8 % (0.0-10.0); %Lymphocytes 17.1 % (21.0-51.0); %Monocytes 9.1 % (0.0-10.0); Hematocrit 29.1 % (36.0-47.0); Hemoglobin 9.6 g/dL (12.0-16.0); Mean Corpuscular Hemoglobin 31.6 pg (27.0-31.0); Mean Corpuscular Volume 95.7 fl (78.0-98.0); Mean Platelet Volume 9.9 fL (7.4-10.4); Platelet Count 273 10x3/uL (130-400); RBC Distribution Width 13.8 % (11.5-14.5); Red Blood Cell (RBC) Count 3.04 mill/uL (4.20-5.40); White Blood Cell (WBC) Count 11.6 10x3/uL (4.8-10.8)
[2023-09-28 06:06] LABS: Anion Gap 10 mmol/L (10-20); BUN (Urea Nitrogen) 12 mg/dL (9.8-20.1); Calc. Creatinine Clearance 73 mL/min (70-130); Calcium 8.1 mg/dL (7.8-10.44); Carbon Dioxide 28 mmol/L (23-31); Chloride 105 mmol/L (98-107); Estimated GFR 78; Glucose 154 mg/dL (80-115); Magnesium 2.2 mg/dL (1.6-2.6); Sodium 139 mmol/L (136-145)
[2023-09-28] MEDS: Amlodipine 5 MG TAB PO SCH (09:56)
[2023-09-28] MEDS: levETIRAcetam 500 MG TAB PO SCH ×2 (09:56→20:34)
[2023-09-28] MEDS: Carvedilol 25 MG TAB PO SCH ×2 (09:56→20:34)
[2023-09-28] MEDS: Insulin Glargine 30 UNITS/0.3 ML VIAL SC SCH (10:00)
[2023-09-28] MEDS: Lactulose 20 GM (30 mL) UDCUP PO SCH ×3 (10:13→20:35)
[2023-09-28] MEDS: Senokot S 8.6-50 MG TAB PO SCH ×2 (10:13→20:35)
[2023-09-28] MEDS: Polyethylene Glycol 3350 17 GM Packet PO SCH (10:13)
[2023-09-28] MEDS: Morphine 2 MG/ML VIAL SLOW IVP PRN (12:48)
[2023-09-28] MEDS: cefTRIAXone\\ROCEPHIN 1 GM in Sodium Chloride 0.9% 100 ML IVPB SCH (16:46)
[2023-09-29] MEDS: Insulin Regular 300 UNITS/3 ML VIAL SC PRN (01:04)
[2023-09-29 04:34] LABS: #Basophils 0.1 thou/uL (0.0-0.2); #Eosinphils 0.4 thou/uL (0.0-0.7); #Monocytes 0.9 thou/uL (0.11-0.59); #Neutrophils 7.4 thou/uL (1.40-6.50); %Basophils 0.5 % (0.0-1.0); %Eosinophils 3.8 % (0.0-10.0); %Lymphocytes 18.6 % (21.0-51.0); %Monocytes 8.6 % (0.0-10.0); Hematocrit 29.8 % (36.0-47.0); Hemoglobin 9.7 g/dL (12.0-16.0); Mean Corpuscular HGB CONC 32.6 g/dL (32.0-36.0); Mean Corpuscular Hemoglobin 31.3 pg (27.0-31.0); Mean Corpuscular Volume 96.1 fl (78.0-98.0); Mean Platelet Volume 9.8 fL (7.4-10.4); Platelet Count 295 10x3/uL (130-400); RBC Distribution Width 13.9 % (11.5-14.5); White Blood Cell (WBC) Count 10.8 10x3/uL (4.8-10.8)
[2023-09-29] MEDS: Labetalol HCl 100 MG/20 ML VIAL SLOW IVP PRN (04:36)
[2023-09-29 04:59] LABS: Anion Gap 12 mmol/L (10-20); BUN (Urea Nitrogen) 13 mg/dL (9.8-20.1); Calc. Creatinine Clearance 72 mL/min (70-130); Calcium 8.3 mg/dL (7.8-10.44); Carbon Dioxide 27 mmol/L (23-31); Chloride 105 mmol/L (98-107); Estimated GFR 76; Glucose 109 mg/dL (80-115); Potassium 3.9 mmol/L (3.5-5.1); Sodium 140 mmol/L (136-145)
[2023-09-29] MEDS ORDERED: Magnesium 2 GM/50 ML(in water) 2 GM in Premix 1 BAG IVPB SCH (08:00)
[2023-09-29 08:11] VITALS: BP 149/62; TEMP 98.5
== END 2023-09-29 09:18 | disposition home or self-care (01) | DRG 83 ==
LOC: ERS 13:05 → CCU 14:07 → 2SE 09-25 17:58
PROVIDERS: ADMIT Internal Medicine; ATTEND Hospitalist
DX: S06.30AA Unspecified focal traumatic brain injury with loss of consciousness status unknown, initial encounter (principal); E87.20 Acidosis, unspecified; N39.0 Urinary tract infection, site not specified; S42.202A Unspecified fracture of upper end of left humerus, initial encounter for closed fracture; I25.10 Atherosclerotic heart disease of native coronary artery without angina pectoris; E11.9 Type 2 diabetes mellitus without complications; E78.5 Hyperlipidemia, unspecified; I16.0 Hypertensive urgency; W19.XXXA Unspecified fall, initial encounter; K59.00 Constipation, unspecified; Z11.52 Encounter for screening for COVID-19; Y92.009 Unspecified place in unspecified non-institutional (private) residence as the place of occurrence of the external cause; I25.2 Old myocardial infarction; Z95.5 Presence of coronary angioplasty implant and graft; Z90.49 Acquired absence of other specified parts of digestive tract; Z98.890 Other specified postprocedural states; Z79.899 Other long term (current) drug therapy; Z79.4 Long term (current) use of insulin
CPT/HCPCS: 36415; 36416; 70450; 72156; 72157; 80048; 83605; 83735; 85025; 87040; 87086; 87149; 93005; 93880; 96365; 96366; 96368; A9579; J0696; J1815; J2272; J3475; J3490; J7050

== ENCOUNTER 2024-08-12 10:48 | Inpatient (IN) | payer MEDICARE ==
[~2024-08-12 10:48] MED LIST: Iopamidol-370 76% 500 ML MDV (1 ML CHARGE) ONE
[2024-08-12 13:12] LABS: Hematocrit 36.1 % (36.0-47.0); Mean Corpuscular HGB CONC 33.2 g/dL (32.0-36.0); Mean Corpuscular Hemoglobin 31.7 pg (27.0-31.0); Mean Corpuscular Volume 95.5 fL (78.0-98.0); Mean Platelet Volume 11.3 fL (7.4-10.4); Platelet Count 297 10x3/uL (130-400); RBC Distribution Width 13.3 % (11.5-14.5); Red Blood Cell (RBC) Count 3.78 mill/uL (4.20-5.40)
[2024-08-12 13:18] LABS: ALT (SGPT) 15 U/L (8-55); AST (SGOT) 22 U/L (5-34); Albumin 2.6 g/dL (3.4-4.8); Alkaline Phosphatase 77 U/L (40-110); Anion Gap 16 mmol/L (10-20); BUN (Urea Nitrogen) 24 mg/dL (9.8-20.1); Bilirubin, Total 0.3 mg/dL (0.2-1.2); Calc. Creatinine Clearance 0 mL/min (70-130); Calcium 8.1 mg/dL (7.8-10.44); Carbon Dioxide 21 mmol/L (23-31); Chloride 106 mmol/L (98-107); Estimated GFR 44; Glucose 244 mg/dL (80-115); Potassium 4.3 mmol/L (3.5-5.1); Protein, Total 6.6 g/dL (5.8-8.1); Sodium 139 mmol/L (136-145)
[2024-08-12 13:21] LABS: Troponin I 0.018 ng/mL (< 0.028)
[2024-08-12 13:23] LABS: INR-International Normal Ratio 1.1; Prothrombin Time 13.8 sec (12.0-14.7)
[2024-08-12 13:24] LABS: PTT 24.6 sec (22.9-36.1)
[2024-08-12 13:56] LABS: Band 33 % (5-11); Burr Cells SLIGHT = 2-5 cells HPF (0-1); Eosinophils 7 % (0-10); Lymphocytes 1 % (21-51); Monocytes 1 % (0-10); Neutrophil 58 % (42-75); Platelet Adequacy Comment Platelets Normal; Polychromasia SLIGHT = 2-3 cells HPF (0-2); Schistocytes SLIGHT = 2-5 cells HPF (0-1)
[2024-08-12] MEDS ORDERED: Aspirin Chewable 81 MG TAB ONE (14:40)
[2024-08-12] MEDS ORDERED: Sodium Chloride 0.9% 100 ML ONE (14:40)
[2024-08-12] MEDS ORDERED: Cefepime 2 GM VIAL ONE (14:40)
[2024-08-12 16:20] LABS: Bacteria/HPF None Seen HPF (None Seen); Bilirubin Negative (Negative); Blood, Urine Negative (Negative); CAUTI Indications for Culture Alt mental st,lethar; Clarity Clear (Clear); Glucose, Urine (Dipstick) Greater than 1000 mg/dL (Negative); Ketone, Urine Negative (Negative); Leukocyte Negative Leu/uL (Negative); Nitrite Negative (Negative); Protein, Urine (Dipstick) Negative (Neg-Trace); RBC/HPF 0-3 HPF (0-3); Squamous Epithelial None Seen HPF (0-3); Urobilinogen Normal mg/dL (Less than 2); WBC/HPF 0-3 HPF (0-3)
[2024-08-12 16:21] LABS: Specific Gravity, Urine 1.052 (1.002-1.036)
[2024-08-12 16:22] LABS: Urine Culture Reflex No No
[2024-08-12] MEDS ORDERED: Ondansetron PF 4 MG/2 ML Vial IVP PRN (18:29)
[2024-08-12] MEDS ORDERED: Acetaminophen 650 MG Suppository PR PRN (18:29)
[2024-08-12] MEDS ORDERED: Ondansetron ODT 4 MG TAB PO PRN (18:29)
[2024-08-12] MEDS ORDERED: hydrALAZINE 20 MG/ML VIAL SLOW IVP PRN (18:37)
[2024-08-12] MEDS: VANCOMYCIN 1.25 GM/250 ML BAG 1.25 GM in Premix 1 BAG IVPB SCH (19:10)
[2024-08-12] MEDS ORDERED: Senokot S 8.6-50 MG TAB PO PRN (21:23)
[2024-08-12] MEDS ORDERED: Cefepime 1 GM VIAL ONE (22:37)
[2024-08-12] MEDS: Memantine 5 MG TAB PO SCH (22:56)
[2024-08-12] MEDS: levETIRAcetam 500 mg/5 ml Oral Solution PO SCH (22:56)
[2024-08-12] MEDS: Insulin Glargine 30 UNITS/0.3 ML VIAL SC SCH (22:56)
[2024-08-12] MEDS ORDERED: LevoFLOXacin 750 mg/D5W 150 ml Premix Bag ONE (23:52)
[2024-08-12] MEDS: LevoFLOXacin 750 mg/D5W 750 MG in Premix 1 BAG IVPB SCH (23:58)
[2024-08-13] MEDS ORDERED: Insulin Lispro 100 UNIT/ML 10 ML VIAL ONE (00:20)
[2024-08-13] MEDS: Insulin Lispro 100 UNIT/ML 10 ML VIAL SC SCH ×2 (00:30→10:27)
[2024-08-13] MEDS: Sodium Chloride 0.9% 500 ML IV SCH (00:30)
[2024-08-13] MEDS: Sodium Chloride 0.9% 1,000 ML IV SCH (04:19)
[2024-08-13] MEDS ORDERED: Cefepime 2 GM VIAL ONE (04:50)
[2024-08-13] MEDS ORDERED: Sodium Chloride 0.9% 100 ML ONE (04:51)
[2024-08-13] MEDS: Cefepime 2 GM in Sodium Chloride 0.9% 100 ML IVPB SCH (05:08)
[2024-08-13 06:10] LABS: #Basophils 0.08 10x3/uL (0.0-0.2); %Basophils 0.4 % (0.0-1.0); %Eosinophils 19.5 % (0.0-10.0); %Lymphocytes 10.8 % (21.0-51.0); %Monocytes 5.7 % (0.0-10.0); %Neutrophils 62.9 % (42.0-75.0); Hematocrit 35.3 % (36.0-47.0); Hemoglobin 10.6 g/dL (12.0-16.0); Mean Corpuscular Hemoglobin 31.5 pg (27.0-31.0); Mean Corpuscular Volume 105.1 fL (78.0-98.0); Mean Platelet Volume 10.8 fL (7.4-10.4); Platelet Count 212 10x3/uL (130-400); RBC Distribution Width 13.4 % (11.5-14.5); Red Blood Cell (RBC) Count 3.36 mill/uL (4.20-5.40)
[2024-08-13 06:15] LABS: Hemoglobin A1c 8.6 % (4.0-6.0)
[2024-08-13 06:26] LABS: Anion Gap 12 mmol/L (10-20); BUN (Urea Nitrogen) 18 mg/dL (9.8-20.1); Calc. Creatinine Clearance 56 mL/min (70-130); Calcium 7.7 mg/dL (7.8-10.44); Carbon Dioxide 19 mmol/L (23-31); Cardiac Risk 2.4 (Less than 4.5); Chloride 110 mmol/L (98-107); Cholesterol 71 mg/dl (< 200 Desired); Estimated GFR 66; Glucose 233 mg/dL (80-115); HDL Cholesterol 29 mg/dL (>60 Neg Risk); LDL Cholesterol, Calculated 26 mg/dL; Potassium 3.6 mmol/L (3.5-5.1); Sodium 137 mmol/L (136-145); Triglycerides 78 mg/dL (Less than 150); Vancomycin, Random 13.7 ug/mL (See Comment)
[2024-08-13] MEDS: Famotidine 20 MG TAB PO SCH (07:49)
[2024-08-13] MEDS: Atorvastatin Calcium 40 MG TAB PO SCH ×2 (07:49→10:29)
[2024-08-13] MEDS ORDERED: Aspirin 81 mg Enteric Coated Tablet ONE (10:14)
[2024-08-13] MEDS ORDERED: Pantoprazole DR 40 MG TAB ONE (10:14)
[2024-08-13] MEDS ORDERED: Atorvastatin Calcium 40 MG TAB ONE (10:14)
[2024-08-13] MEDS ORDERED: Memantine 10 MG TAB ONE ×2 (10:14→10:15)
[2024-08-13] MEDS ORDERED: Carvedilol 25 MG TAB ONE (10:14)
[2024-08-13] MEDS: Pantoprazole DR 40 MG TAB PO SCH (10:29)
[2024-08-13] MEDS: Carvedilol 25 MG TAB PO SCH (10:30)
[2024-08-13] MEDS: Aspirin 81 mg Enteric Coated Tablet PO SCH (10:30)
[2024-08-13] MEDS: Rivastigmine 4.6mg/24 Hour PATCH TOP SCH (10:31)
[2024-08-13] MEDS: Dapagliflozin Propanediol 10 MG TAB PO SCH (10:31)
[2024-08-13] MEDS: Ferrous Sulfate 325 MG TAB PO SCH (10:31)
[2024-08-13 11:18] VITALS: BMI 23.4
[2024-08-13] MEDS: Vancomycin 1 GM in Premix 1 BAG IVPB SCH (15:54)
[2024-08-13] MEDS: Haloperidol Lactate 5 MG/ML VIAL IM SCH (17:15)
[2024-08-13] MEDS: QUEtiapine 25 MG TAB PO SCH (17:23)
[2024-08-13] MEDS: Melatonin 3 MG TAB PO SCH (21:49)
[2024-08-14 09:43] LABS: Hemoglobin 10.4 g/dL (12.0-16.0); Mean Corpuscular HGB CONC 32.5 g/dL (32.0-36.0); Mean Corpuscular Hemoglobin 31.8 pg (27.0-31.0); Mean Corpuscular Volume 97.9 fL (78.0-98.0); Mean Platelet Volume 10.5 fL (7.4-10.4); Platelet Count 240 10x3/uL (130-400); RBC Distribution Width 13.6 % (11.5-14.5); Red Blood Cell (RBC) Count 3.27 mill/uL (4.20-5.40)
[2024-08-14 09:52] LABS: Anion Gap 10 mmol/L (10-20); BUN (Urea Nitrogen) 13 mg/dL (9.8-20.1); Calc. Creatinine Clearance 55 mL/min (70-130); Calcium 8.1 mg/dL (7.8-10.44); Carbon Dioxide 22 mmol/L (23-31); Chloride 111 mmol/L (98-107); Estimated GFR 61; Glucose 205 mg/dL (80-115); Potassium 3.7 mmol/L (3.5-5.1); Sodium 139 mmol/L (136-145)
[2024-08-14 10:11] LABS: Band 4 % (5-11); Eosinophils 34 % (0-10); Lymphocytes 16 % (21-51); Monocytes 6 % (0-10); Neutrophil 41 % (42-75); Platelet Adequacy Comment Platelets Normal; Polychromasia SLIGHT = 2-3 cells HPF (0-2)
[2024-08-14] MEDS ORDERED: Haloperidol Lactate 5 MG/ML VIAL IM SCH (18:15)
[2024-08-15 04:48] LABS: Hematocrit 33.3 % (36.0-47.0); Hemoglobin 11.1 g/dL (12.0-16.0); Mean Corpuscular HGB CONC 33.3 g/dL (32.0-36.0); Mean Corpuscular Hemoglobin 32.2 pg (27.0-31.0); Mean Corpuscular Volume 96.5 fL (78.0-98.0); Mean Platelet Volume 10.6 fL (7.4-10.4); Platelet Count 264 10x3/uL (130-400); RBC Distribution Width 13.4 % (11.5-14.5); Red Blood Cell (RBC) Count 3.45 mill/uL (4.20-5.40)
[2024-08-15 04:49] LABS: Anion Gap 11 mmol/L (10-20); BUN (Urea Nitrogen) 10 mg/dL (9.8-20.1); Calc. Creatinine Clearance 61 mL/min (70-130); Calcium 8.3 mg/dL (7.8-10.44); Carbon Dioxide 23 mmol/L (23-31); Chloride 109 mmol/L (98-107); Estimated GFR 68; Glucose 223 mg/dL (80-115); Potassium 3.7 mmol/L (3.5-5.1); Sodium 139 mmol/L (136-145)
[2024-08-15 05:30] LABS: Band 4 % (5-11); Eosinophils 40 % (0-10); Lymphocytes 7 % (21-51); Monocytes 3 % (0-10); Neutrophil 47 % (42-75); Platelet Adequacy Comment Platelets Normal; Polychromasia SLIGHT = 2-3 cells HPF (0-2); Target Cells SLIGHT = 2-5 cells HPF (0-1)
[2024-08-15] MEDS: LevoFLOXacin 750 MG TAB PO SCH (06:07)
[2024-08-15] MEDS ORDERED: Dextrose 50% Abboject 50 ML SYRINGE SLOW IVP PRN (22:26)
[2024-08-15] MEDS ORDERED: Dextrose 5% in Water 1,000 ML IV PRN (22:26)
[2024-08-15] MEDS ORDERED: Glucagon 1 MG/ML KIT IM PRN (22:26)
[2024-08-15] MEDS: Insulin Lispro 100 UNIT/ML 10 ML VIAL SC PRN (23:20)
[2024-08-16 05:56] LABS: Anion Gap 11 mmol/L (10-20); BUN (Urea Nitrogen) 13 mg/dL (9.8-20.1); Calc. Creatinine Clearance 54 mL/min (70-130); Calcium 8.5 mg/dL (7.8-10.44); Carbon Dioxide 28 mmol/L (23-31); Chloride 107 mmol/L (98-107); Estimated GFR 60; Glucose 202 mg/dL (80-115); Potassium 3.7 mmol/L (3.5-5.1); Sodium 142 mmol/L (136-145)
[2024-08-16 06:10] LABS: Hematocrit 34.1 % (36.0-47.0); Mean Corpuscular HGB CONC 32.3 g/dL (32.0-36.0); Mean Corpuscular Hemoglobin 31.5 pg (27.0-31.0); Mean Corpuscular Volume 97.7 fL (78.0-98.0); Platelet Count 283 10x3/uL (130-400); RBC Distribution Width 13.2 % (11.5-14.5); Red Blood Cell (RBC) Count 3.49 mill/uL (4.20-5.40)
[2024-08-16 07:30] LABS: Band 1 % (5-11); Eosinophils 36 % (0-10); Large Platelets 1.8 % (0-5); Lymphocytes 15 % (21-51); Monocytes 3 % (0-10); Neutrophil 43 % (42-75); Platelet Adequacy Comment Platelets Normal; Polychromasia SLIGHT = 2-3 cells HPF (0-2); Reactive Lymphocytes 1 % (0-10); Vacuoles SLIGHT
[2024-08-16] MEDS: QUEtiapine 25 MG TAB PO SCH (18:06)
[2024-08-16] MEDS: Insulin Glargine 30 UNITS/0.3 ML VIAL SC SCH (21:26)
[2024-08-17 04:39] LABS: Hematocrit 35.9 % (36.0-47.0); Hemoglobin 11.5 g/dL (12.0-16.0); Mean Corpuscular Hemoglobin 31.4 pg (27.0-31.0); Mean Corpuscular Volume 98.1 fL (78.0-98.0); Mean Platelet Volume 10.5 fL (7.4-10.4); Platelet Count 301 10x3/uL (130-400); RBC Distribution Width 13.2 % (11.5-14.5); Red Blood Cell (RBC) Count 3.66 mill/uL (4.20-5.40)
[2024-08-17 05:00] LABS: Sodium 143 mmol/L (136-145)
[2024-08-17 05:01] LABS: Anion Gap 11 mmol/L (10-20); BUN (Urea Nitrogen) 14 mg/dL (9.8-20.1); Calc. Creatinine Clearance 53 mL/min (70-130); Calcium 8.5 mg/dL (7.8-10.44); Carbon Dioxide 30 mmol/L (23-31); Chloride 106 mmol/L (98-107); Estimated GFR 58; Glucose 116 mg/dL (80-115); Potassium 3.7 mmol/L (3.5-5.1)
[2024-08-17 05:12] LABS: Eosinophils 34 % (0-10); Lymphocytes 13 % (21-51); Monocytes 5 % (0-10); Neutrophil 49 % (42-75); Platelet Adequacy Comment Platelets Normal; RBC Morphology Within Normal Limits; Smudge Cells 22.8 %
[2024-08-17] MEDS ORDERED: VANCOMYCIN 1.25 GM/250 ML BAG 1.25 GM in Premix 1 BAG IVPB SCH (09:00)
[2024-08-17] MEDS: Cefepime 1 GM in Sodium Chloride 0.9% 100 ML IVPB SCH (09:44)
[2024-08-17] MEDS: LevoFLOXacin 750 MG TAB PO SCH (11:15)
[2024-08-17] MEDS: Vancomycin (BATCH) 1.5 GM in Premix 1 BAG IVPB SCH (11:15)
[2024-08-17] MEDS: Vancomycin 1 GM in Premix 1 BAG IVPB SCH (23:55)
[2024-08-18 04:04] LABS: Anion Gap 14 mmol/L (10-20); BUN (Urea Nitrogen) 15 mg/dL (9.8-20.1); Calc. Creatinine Clearance 60 mL/min (70-130); Calcium 8.2 mg/dL (7.8-10.44); Carbon Dioxide 24 mmol/L (23-31); Chloride 107 mmol/L (98-107); Estimated GFR 67; Glucose 164 mg/dL (80-115); Potassium 3.9 mmol/L (3.5-5.1); Sodium 141 mmol/L (136-145)
[2024-08-18 04:06] LABS: Vancomycin, Random 34.6 ug/mL (See Comment)
[2024-08-18 05:19] LABS: Hematocrit 33.5 % (36.0-47.0); Hemoglobin 10.8 g/dL (12.0-16.0); Mean Corpuscular HGB CONC 32.2 g/dL (32.0-36.0); Mean Corpuscular Hemoglobin 30.7 pg (27.0-31.0); Mean Corpuscular Volume 95.2 fL (78.0-98.0); Mean Platelet Volume 10.2 fL (7.4-10.4); Platelet Count 275 10x3/uL (130-400); RBC Distribution Width 13.3 % (11.5-14.5); Red Blood Cell (RBC) Count 3.52 mill/uL (4.20-5.40)
[2024-08-18 06:32] LABS: Band 1 % (5-11); Eosinophils 40 % (0-10); Lymphocytes 8 % (21-51); Macrocytosis SLIGHT = 6-15 cells HPF (0-5); Monocytes 6 % (0-10); Myelocyte 1 % (0-0); Neutrophil 42 % (42-75); Platelet Adequacy Comment Platelets Normal; Polychromasia SLIGHT = 2-3 cells HPF (0-2); Smudge Cells 9.9 %
[2024-08-18] MEDS: Cefepime 2 GM in Sodium Chloride 0.9% 100 ML IVPB SCH (20:17)
[2024-08-19 04:34] LABS: Hemoglobin 11.3 g/dL (12.0-16.0); Mean Corpuscular HGB CONC 32.3 g/dL (32.0-36.0); Mean Corpuscular Hemoglobin 31.2 pg (27.0-31.0); Mean Corpuscular Volume 96.7 fL (78.0-98.0); Mean Platelet Volume 10.2 fL (7.4-10.4); Platelet Count 271 10x3/uL (130-400); RBC Distribution Width 13.4 % (11.5-14.5); Red Blood Cell (RBC) Count 3.62 mill/uL (4.20-5.40)
[2024-08-19 04:54] LABS: Anion Gap 13 mmol/L (10-20); BUN (Urea Nitrogen) 15 mg/dL (9.8-20.1); Calc. Creatinine Clearance 44 mL/min (70-130); Calcium 8.5 mg/dL (7.8-10.44); Carbon Dioxide 25 mmol/L (23-31); Chloride 105 mmol/L (98-107); Estimated GFR 50; Glucose 229 mg/dL (80-115); Potassium 3.9 mmol/L (3.5-5.1); Sodium 139 mmol/L (136-145)
[2024-08-19 05:28] LABS: Eosinophils 36 % (0-10); Lymphocytes 8 % (21-51); Monocytes 5 % (0-10); Neutrophil 50 % (42-75); Platelet Adequacy Comment Platelets Normal; RBC Morphology Within Normal Limits; Smudge Cells 6.9 %
[2024-08-19] MEDS: Insulin Lispro 100 UNIT/ML 10 ML VIAL SC PRN (06:14)
[2024-08-20 04:58] LABS: Vancomycin, Random 35.9 ug/mL (See Comment)
[2024-08-20 08:12] LABS: Hematocrit 34.1 % (36.0-47.0); Hemoglobin 11.2 g/dL (12.0-16.0); Mean Corpuscular HGB CONC 32.8 g/dL (32.0-36.0); Mean Corpuscular Hemoglobin 31.5 pg (27.0-31.0); Mean Corpuscular Volume 95.8 fL (78.0-98.0); Mean Platelet Volume 9.7 fL (7.4-10.4); Platelet Count 256 10x3/uL (130-400); RBC Distribution Width 13.2 % (11.5-14.5); Red Blood Cell (RBC) Count 3.56 mill/uL (4.20-5.40)
[2024-08-20 08:27] LABS: Anion Gap 11 mmol/L (10-20); BUN (Urea Nitrogen) 16 mg/dL (9.8-20.1); Calc. Creatinine Clearance 48 mL/min (70-130); Calcium 8.9 mg/dL (7.8-10.44); Carbon Dioxide 28 mmol/L (23-31); Chloride 104 mmol/L (98-107); Estimated GFR 55; Glucose 253 mg/dL (80-115); Potassium 4.1 mmol/L (3.5-5.1); Sodium 139 mmol/L (136-145)
[2024-08-20 08:55] LABS: Band 1 % (5-11); Eosinophils 32 % (0-10); Lymphocytes 16 % (21-51); Monocytes 4 % (0-10); Neutrophil 47 % (42-75); Platelet Adequacy Comment Platelets Normal; Polychromasia SLIGHT = 2-3 cells HPF (0-2)
[2024-08-20] MEDS: Acetaminophen 325 MG TAB PO PRN (21:35)
[2024-08-21 03:47] LABS: #Basophils 0.15 10x3/uL (0.0-0.2); %Eosinophils 20.5 % (0.0-10.0); %Lymphocytes 19.6 % (21.0-51.0); %Monocytes 8.4 % (0.0-10.0); Hematocrit 33.8 % (36.0-47.0); Mean Corpuscular HGB CONC 32.5 g/dL (32.0-36.0); Mean Corpuscular Hemoglobin 31.4 pg (27.0-31.0); Mean Corpuscular Volume 96.6 fL (78.0-98.0); Platelet Count 252 10x3/uL (130-400); RBC Distribution Width 13.4 % (11.5-14.5)
[2024-08-21 04:14] LABS: Anion Gap 14 mmol/L (10-20); BUN (Urea Nitrogen) 19 mg/dL (9.8-20.1); Calc. Creatinine Clearance 46 mL/min (70-130); Calcium 8.8 mg/dL (7.8-10.44); Carbon Dioxide 26 mmol/L (23-31); Chloride 104 mmol/L (98-107); Estimated GFR 52; Glucose 151 mg/dL (80-115); Sodium 140 mmol/L (136-145)
[2024-08-21 11:35] VITALS: BMI 22.1
[2024-08-21] MEDS: QUEtiapine 25 MG TAB PO SCH (18:03)
[2024-08-21] MEDS: Insulin Glargine 30 UNITS/0.3 ML VIAL SC SCH (22:48)
[2024-08-22 04:20] LABS: #Basophils 0.21 10x3/uL (0.0-0.2); %Basophils 1.6 % (0.0-1.0); %Eosinophils 18.1 % (0.0-10.0); %Lymphocytes 17.7 % (21.0-51.0); %Monocytes 7.6 % (0.0-10.0); %Neutrophils 54.6 % (42.0-75.0); Hematocrit 36.5 % (36.0-47.0); Hemoglobin 11.7 g/dL (12.0-16.0); Mean Corpuscular HGB CONC 32.1 g/dL (32.0-36.0); Mean Corpuscular Hemoglobin 31.4 pg (27.0-31.0); Mean Corpuscular Volume 97.9 fL (78.0-98.0); Mean Platelet Volume 9.8 fL (7.4-10.4); Platelet Count 276 10x3/uL (130-400); RBC Distribution Width 13.2 % (11.5-14.5); Red Blood Cell (RBC) Count 3.73 mill/uL (4.20-5.40)
[2024-08-22 10:09] VITALS: TEMP 98
[2024-08-22] MEDS: Insulin Lispro 100 UNIT/ML 10 ML VIAL SC SCH (10:16)
[2024-08-22 12:07] VITALS: BP 185/81
== END 2024-08-22 12:01 | DRG 64 ==
LOC: ERS 10:48 → ERHOLD 18:49 → PCU 08-13 11:07 → 2SE 08-13 19:25
PROVIDERS: ADMIT Hospitalist; ATTEND Family Medicine
DX: I63.9 Cerebral infarction, unspecified (principal); A41.9 Sepsis, unspecified organism; J18.9 Pneumonia, unspecified organism; F03.918 Unspecified dementia, unspecified severity, with other behavioral disturbance; E10.9 Type 1 diabetes mellitus without complications; I25.10 Atherosclerotic heart disease of native coronary artery without angina pectoris; I10 Essential (primary) hypertension; E78.5 Hyperlipidemia, unspecified; Z90.49 Acquired absence of other specified parts of digestive tract; Z95.5 Presence of coronary angioplasty implant and graft; F03.90 Unspecified dementia, unspecified severity, without behavioral disturbance, psychotic disturbance, mood disturbance, and anxiety; Z79.4 Long term (current) use of insulin; Z79.899 Other long term (current) drug therapy; Z79.82 Long term (current) use of aspirin; I25.2 Old myocardial infarction; Z51.5 Encounter for palliative care
CPT/HCPCS: 0042T; 36415; 36416; 51702; 70450; 70496; 70498; 70551; 71045; 72170; 74018; 80048; 80053; 80061; 80202; 81001; 83036; 83605; 84443; 84484; 85025; 85610; 85730; 86850; 86900; 86901; 87040; 87086; 87428; 93005; 93306; 94760; 96365; 96366; 96367; J0692; J1630; J1815; J1956; J3370; J3370-JW; J7030; Q9967